=== PATIENT | female | born 1935 | race Caucasian/White ===

== ENCOUNTER 2021-09-02 02:22 | Inpatient (IN) | payer MEDICARE, OTHER ==
[~2021-09-02] VITALS: Ht 160 cm; Wt 86.0 kg
--- NOTE | 2021-09-02 03:06 | NUR ---
PT AWARE OF PLAN OF CARE; STATES NO FURTHER ASSISTANCE AT THIS TIME
[2021-09-02 03:08] LABS: HEMATOCRIT 37.6 % (37.0-47.0); HEMOGLOBIN 12.2 g/dl (12.0-16.0); IMMATURE GRANULOCYTES 1.1 % (0.0-5.0); MEAN CELL VOLUME 92.8 fL CALC (80.0-100.0); MEAN CORPUSCULAR HGB 30.1 pG CALC (26.0-32.0); MEAN CORPUSCULAR HGB CONC 32.4 g/dL CAL (32.0-36.0); NEUT# 3.66 thou/uL (2.00-7.15); RED BLOOD COUNT 4.05 mill/uL (4.20-5.60); RED CELL DISTRI WIDTH 13.7 % (11.5-15.5)
[2021-09-02 03:22] LABS: ALBUMIN 3.9 g/dL (3.2-5.0); ALKALINE PHOSPHATASE 60 u/l (38-126); ANION GAP 15 (6-22 (CALC)); BILIRUBIN, TOTAL 0.7 mg/dL (0.0-1.4); BUN 20 mg/dL (8-23); BUN/CREATININE RATIO 21 (12-20 (CALC)); CARBON DIOXIDE 23 mmol/l (22-30); CHLORIDE 103 mmol/l (95-108); GFR 53 ML/MIN (>=60 (CALC)); GFR FOR AFR.AMER. > 60 ML/MIN (>=60 (CALC)); POTASSIUM 3.5 mmol/l (3.5-5.1); SGOT/AST 43 u/l (9-36); SODIUM 137 mmol/l (137-146); TOTAL PROTEIN 6.9 g/dL (6.3-8.2)
--- NOTE | 2021-09-02 05:58 | NUR ---
PT AWARE OF PLAN OF CARE; STATES NO FURTHER ASSISTANCE AT THIS TIME
--- NOTE | 2021-09-02 07:07 | NUR ---
PT AMBULATED IN ROOM W/O OXYGEN. OXYGEN SAT AT 87% WITH A HR OF 106. NOTIFIED
--- NOTE | 2021-09-02 07:15 | NUR ---
PATIENT PLACED BACK ON OXYGEN, REMAINS 95% SpO2 ON 3L CURRENTLY
--- NOTE | 2021-09-02 08:40 | NUR ---
ATTEMPT TO CALL REPORT
--- NOTE | 2021-09-02 09:18 | NUR ---
REPORT RECIEVED FORM LEONORA GUTIERREZ FROM ER
--- NOTE | 2021-09-02 09:18 | NUR ---
REPORT GIVEN TO JAEL LEA
--- NOTE | 2021-09-02 09:50 | NUR ---
ASSESSMENT ALLOWED AT THIS TIME. LUNG SOUNDS RONCHI IN RUL&ELIZABETH ANTERIOR AND POSTERIOR. DENSE LUNG SOUNDS LLL AND RLL ANTERIOR AND POSTERIOR. HEART SOUNDS REGULAR, TELE MONITOR IN PLACE, CONTINOUS MONITORING BY ED. BOWEL SOUNDS ACTIVE X4. SMALL BRUISE ABOVE THE RIGHT KNEE. PT IS A&O X3. SKIN WDI. PT ON O2 3L VIA NC. STATES NOT O2 DEPENDENT AT HOME. STATES NO OTHER NEEDS AT THIS TIME. CALL LIGHT AND PERSONAL ITEMS WITHIN REACH
[2021-09-02 10:03] VITALS: BP 157/65
[2021-09-02 10:52] VITALS: BP 142/65
[2021-09-02] MEDS ORDERED: CRESTOR5 MG PO (12:07)
[2021-09-02] MEDS ORDERED: TOPROL XL25 M1 PO (12:08)
[2021-09-02] MEDS ORDERED: PEPCID40 MG PO (12:08)
[2021-09-02] MEDS ORDERED: JANUMET1 TAB PO (12:09)
--- NOTE | 2021-09-02 13:18 | NUR ---
PT EATING LUNCH AT THIS TIME. PT HAS VERY PRODUCTIVE COUGH SHOWING SMALL AMOUNTS OF YELLO/DICKENS SPUTUM. O2 REMAINS AT 3L VIA NC SPO2 @96%. ABLE TO TAKE PO MEDS WELL. BED ALARM ACTIVATED. FALL/SAFTEY PRECAUTIONS IN PLACE. IV PATENT. CALL LIGHT AND PERSONAL ITEMS WITHIN REACH
--- NOTE | 2021-09-02 13:21 | NUR ---
PT ARRIVED VIA WC WITH LEONORA GUTIERREZ. PT ON 3L VIA NASAL CANNULA. PT HAS A MOIST PRODUCTIVE COUGH UNABLE TO SEE SPUTUM. ORIENTATED PT TO ROOM. BED ALARM ACTIVATED. FALL/SAFTEY PRECAUTIONS IN PLACE. CALL LIGHT WITHIN REACH
[2021-09-02] MEDS ORDERED: METFORMIN500 M2 PO (13:56)
[2021-09-02] MEDS ORDERED: AVALIDE 300-12.1 TAB PO (14:01)
[2021-09-02 14:56] VITALS: BP 124/60
--- NOTE | 2021-09-02 16:28 | NUR ---
PT SITTING IN BED ON PHONE UPON ENTERING ROOM. STATES NO PAIN AT THIS TIME. COUGH REMAINS PRODUCTIVE WITH YELLOW/DICKENS SPUTUM. IV PATENT. TELE MONITOR IN PLACE. O2 AT 3L VIA NASAL CANNULA. STATES NO OTHER NEEDS AT THIS TIME. FALL/SAFTEY PRECAUTIONS IN PLACE. BED ALARM ACTIVATED. CALL LIGHT WITHIN REACH
--- NOTE | 2021-09-02 19:30 | NUR ---
RECEIVED REPORT FROM LEONORA PERKINS. ASSUMED CARE OF PATIENT.
[2021-09-02 19:35] VITALS: BP 119/64
[2021-09-02 23:56] VITALS: BP 123/66
--- NOTE | 2021-09-03 | NUR ---
PATIENT RESTING IN BED WITH EYES CLOSED, NO S/SX OF DISTRESS OR DISCOMFORT NOTED AT THIS TIME. O2 IN PLACE AT 3L/MIN VIA NC, TELE PLACE AND BEING MONITORED BY ED. CALL LIGHT WITHIN REACH, BED WHEELS LOCKED W/ SIDE RAILS UP X2, WILL CONTINUE TO MONITOR.
[2021-09-03 04:06] VITALS: BP 125/64
--- NOTE | 2021-09-03 04:38 | NUR ---
LAB AT BEDSIDE TO DRAW AM LABS, PATIENT REFUSED TO HAVE IT DONE.
[2021-09-03 05:31] LABS: HEMATOCRIT 36.7 % (37.0-47.0); IMMATURE GRANULOCYTES 0.4 % (0.0-5.0); MEAN CELL VOLUME 92.9 fL CALC (80.0-100.0); MEAN CORPUSCULAR HGB 30.4 pG CALC (26.0-32.0); MEAN CORPUSCULAR HGB CONC 32.7 g/dL CAL (32.0-36.0); NEUT# 8.3 thou/uL (2.00-7.15); RED BLOOD COUNT 3.95 mill/uL (4.20-5.60); RED CELL DISTRI WIDTH 13.8 % (11.5-15.5)
[2021-09-03 05:54] LABS: ALBUMIN 3.3 g/dL (3.2-5.0); ALKALINE PHOSPHATASE 47 u/l (38-126); ANION GAP 12 (6-22 (CALC)); BUN 34 mg/dL (8-23); BUN/CREATININE RATIO 33 (12-20 (CALC)); CARBON DIOXIDE 26 mmol/l (22-30); CHLORIDE 103 mmol/l (95-108); GFR 53 ML/MIN (>=60 (CALC)); GFR FOR AFR.AMER. > 60 ML/MIN (>=60 (CALC)); MAGNESIUM 1.8 mg/dL (1.6-2.3); POTASSIUM 3.8 mmol/l (3.5-5.1); SGOT/AST 35 u/l (9-36); SODIUM 138 mmol/l (137-146)
[2021-09-03 05:55] LABS: BILIRUBIN, TOTAL 0.4 mg/dL (0.0-1.4)
--- NOTE | 2021-09-03 08:00 | NUR ---
SHIFT CHANGE REPORT, PT AWAKE ALERT AND ORIENTED RESTING IN BED, O2 @ 3L VIA ANC IN PLACE, TELE MONITOR IN PLACE, REPORTS SHE IS FEELING BETTER TODAY THAN SHE DID YESTERDAY, IV CATHETER FOUND DISLODGED, CALL KRUSE IN REACH AND BED LOCKED IN LOWEST POSITION.
[2021-09-03 08:48] VITALS: BP 132/57
[2021-09-03 10:15] VITALS: BP 113/59
--- NOTE | 2021-09-03 11:54 | NUR ---
ASSISTED TO BSC, ASSISTED WITH AM CARE BY PUTTIER, BACK IN BED AT THIS TIME.
[2021-09-03 14:52] VITALS: BP 119/66
--- NOTE | 2021-09-03 16:00 | NUR ---
ASSISTED UP TO BSC THEN TO RECLINER, CALL KRUSE PLACED WITHIN REACH, ALL NEEDS ADDRESSED.
[2021-09-03 19:00] VITALS: BP 134/63
--- NOTE | 2021-09-03 22:51 | NUR ---
PHYSICAL ASSESMENT COMPLETE. PT CURRENTLY DENIES PAIN OR DISCOMFORT. SCHEDULED MEDICATIONS AND PRN MEDICATION ADMINISTERED, SEE E-MAR. PT DENIES ANY NEEDS AT THIS TIME. PLAN OF CARE REVIEWED, PT DENIES QUESTIONS, VERBALIZES UNDERSTANDING. ITEMS WITHIN REACH, BED LOCKED IN LOW POSITION W/ BEDRAILS UP X2. CALL KRUSE WITHIN REACH, AGREES TO CALL PRN.
[2021-09-04] VITALS: BP 130/58
--- NOTE | 2021-09-04 00:29 | NUR ---
PT LAYING IN BED WITH EYES CLOSED, APPEARS TO BE SLEEPING, APPEARS COMFORTABLE AND IN NO DISTRESS. RESPIRATIONS REGULAR AND UNLABORED ON 3 LITERS OF O2. ITEMS REMAIN WITHIN REACH, CALL KRUSE REMAINS WITHIN REACH. BED REMAINS LOCKED AND IN LOW POSITION WITH BEDRAILS UP X2. WILL CONTINUE TO MONITOR.
--- NOTE | 2021-09-04 04:10 | NUR ---
PT RESTING IN BED, NO SIGNS OF DISTRESS NOTED, RESP EVEN AND UNLABORED. PT VOICES NO NEEDS OR COMPLAINTS AT THIS TIME. CALL LIGHT IN REACH, CONTINUE TO MONITOR.
[2021-09-04 04:15] VITALS: BP 138/64
[2021-09-04 05:33] LABS: HEMATOCRIT 36.6 % (37.0-47.0); HEMOGLOBIN 11.8 g/dl (12.0-16.0); IMMATURE GRANULOCYTES 0.5 % (0.0-5.0); MEAN CELL VOLUME 92.2 fL CALC (80.0-100.0); MEAN CORPUSCULAR HGB 29.7 pG CALC (26.0-32.0); MEAN CORPUSCULAR HGB CONC 32.2 g/dL CAL (32.0-36.0); NEUT# 7.96 thou/uL (2.00-7.15); RED BLOOD COUNT 3.97 mill/uL (4.20-5.60); RED CELL DISTRI WIDTH 13.7 % (11.5-15.5)
[2021-09-04 06:02] LABS: ALBUMIN 3.2 g/dL (3.2-5.0); ALKALINE PHOSPHATASE 53 u/l (38-126); ANION GAP 13 (6-22 (CALC)); BILIRUBIN, TOTAL 0.4 mg/dL (0.0-1.4); BUN 40 mg/dL (8-23); BUN/CREATININE RATIO 41 (12-20 (CALC)); C-REACTIVE PROTEIN 8.4 mg/dL (0-0.9); CARBON DIOXIDE 24 mmol/l (22-30); CHLORIDE 105 mmol/l (95-108); GFR 53 ML/MIN (>=60 (CALC)); GFR FOR AFR.AMER. > 60 ML/MIN (>=60 (CALC)); POTASSIUM 3.9 mmol/l (3.5-5.1); SGOT/AST 32 u/l (9-36); SODIUM 138 mmol/l (137-146)
[2021-09-04 07:18] VITALS: BP 132/64
--- NOTE | 2021-09-04 07:18 | NUR ---
PATIENT RESTING IN BED AT THIS TIME BOTTLE CAPPING MACHINE OPERATOR DONE AT THIS TIME SEE INTERVENITONS. PATIENT ALERT TO NAME AND WHEREABOUTS AT THIS TIME. PATIENT EXHIBITS TRACE EDEMA IN BILATERAL LOWER LEGS, LUNG LEONARD ARE DIMINISHED AT THIS TIME. SIDERAILS ARE UP CALL LIGHT WIHTIN REACH. TELE MONITOR ON AT THIS TIME BEING MONITORED BY ED. PRODUCTIVE COUGH NOTED WITH THIN WHITE SECREATIONS.
[2021-09-04 10:45] VITALS: BP 139/63; BP 151/67
--- NOTE | 2021-09-04 10:59 | NUR ---
S- pt reported having a bad night. Was up with diarrhea this am. 0- Pt moved supine to sit with bed rail and min assist. Sitting on edge of bed with F+ balance. Transfer to BS chair with SBA. Gait 1x12' and 1 x 20" with CGA assist. Pt steps were small and mild unsteadiness noted. Sitting ex performed x 10- 20 reps for LAQ/hip flexion and ankle DF/PF. Pt reported fatigue after exercises. 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 She was encourage to perform AROM ex and Deep breathing. Pt instructed to have assist with all mobility at this time. HR was 69-72-69, BP 136/62- 146/65-137/63. 02 sats 98% on 3l 02. Time spent with pt 50 min. A- Pt [facility] 14 home with home health. P- will follow.
--- NOTE | 2021-09-04 11:33 | NUR ---
PATIENT SITTING UP IN CHAIR AT THIS TIME. PATIENT DENIES ANY NEEDS CURRENTLY. O2 REMAINS ON AT 3 LITERS AND TELE MONITOR ON AND BEING MONITORED BY ED. WILL CONTINUE TO MONITOR.
--- NOTE | 2021-09-04 11:50 | NUR ---
PATIENT REFUSED TO TAKE PNEUMONIA SHOT STATES SHE ALREADY HAD IT. PATIENT GIVEN FLU SHOT IN LEFT DELTOID 0.7ML HIGH DOSE.
--- NOTE | 2021-09-04 14:07 | NUR ---
PATIENT LAYING IN BED AT THIS TIME ALERT AND ORIENTED WITH BED ALARM AND CAMERA ON . PATIENT ADVISED THAT HER 02 WAS BEING TITRATED TO 2L AT THIS TIME AND EDUCATED ON WHY AND THE PROCESS OF WEANING DOWN PATIENT ALSO ADVISED AT ANY TIME SHE WOULD BECOME SHORT OF BREATH TO CALL OUT FOR NURSE. PATIENT VERBALIZES UNDERSTANDING OF THESE INSTRUCTION.
[2021-09-04 15:00] VITALS: BP 159/67
--- NOTE | 2021-09-04 15:18 | NUR ---
PATIENT ON 2L OF O2 AT THIS TIME. AND SPO2 IS 97%. O2 TURNED DOWN TO 1L WILL CONTINUE TO MONITOR.
--- NOTE | 2021-09-04 15:20 | NUR ---
PATIENT 02 TITATED DOWN TO 1L AT THIS TIME AND SP02 IS CURRENTLY 97% WILL CONTINUE TO MONITOR.
--- NOTE | 2021-09-04 15:35 | NUR ---
PATIENT RESTING IN BED AT THIS TIME DENIES ANY NEEDS AND PAIN TELE MONITOR IN PLACE AND SIDERAILS AND BED ALARM ON AND PATIENT IS ON CAMERA FOR SAFETY. PATIENT 02 IS ON 1L AT THIS TIME AND SPO2 IS 97%. WILL CONTINUE TO MONITOR.
--- NOTE | 2021-09-04 16:53 | NUR ---
PATIENT PULSE OX RECHECKED AT THIS TIME AND PATINET IS AT 92% ON 1L OF O2. INFORMATION REPRORTED TO LUIS VICTOR AT THIS TIME AND PATIENT WILL BE LEFT AT 1L.
[2021-09-04 19:00] VITALS: BP 140/63
--- NOTE | 2021-09-04 22:24 | NUR ---
PT REQUEST AND GIVEN SONATA TO ASSIST WITH SLEEOING.
[2021-09-05] VITALS: BP 150/70
--- NOTE | 2021-09-05 | NUR ---
PT LAYING IN BED WITH EYES CLOSED, APPEARS TO BE SLEEPING, APPEARS COMFORTABLE AND IN NO DISTRESS. RESPIRATIONS REGULAR AND UNLABORED. ITEMS REMAIN WITHIN REACH, CALL KRUSE REMAINS WITHIN REACH. BED REMAINS LOCKED AND IN LOW POSITION WITH BEDRAILS UP X2. WILL CONTINUE TO MONITOR.
[2021-09-05 04:00] VITALS: BP 140/81
[2021-09-05 05:46] LABS: HEMATOCRIT 36.2 % (37.0-47.0); HEMOGLOBIN 11.9 g/dl (12.0-16.0); IMMATURE GRANULOCYTES 2.2 % (0.0-5.0); MEAN CELL VOLUME 92.1 fL CALC (80.0-100.0); MEAN CORPUSCULAR HGB 30.3 pG CALC (26.0-32.0); MEAN CORPUSCULAR HGB CONC 32.9 g/dL CAL (32.0-36.0); NEUT# 6.81 thou/uL (2.00-7.15); RED BLOOD COUNT 3.93 mill/uL (4.20-5.60); RED CELL DISTRI WIDTH 13.7 % (11.5-15.5)
[2021-09-05 06:09] LABS: ALBUMIN 3.2 g/dL (3.2-5.0); ALKALINE PHOSPHATASE 61 u/l (38-126); ANION GAP 12 (6-22 (CALC)); BILIRUBIN, TOTAL 0.4 mg/dL (0.0-1.4); BUN 37 mg/dL (8-23); BUN/CREATININE RATIO 36 (12-20 (CALC)); CARBON DIOXIDE 25 mmol/l (22-30); CHLORIDE 105 mmol/l (95-108); GFR 53 ML/MIN (>=60 (CALC)); GFR FOR AFR.AMER. > 60 ML/MIN (>=60 (CALC)); MAGNESIUM 1.9 mg/dL (1.6-2.3); POTASSIUM 4.2 mmol/l (3.5-5.1); SGOT/AST 31 u/l (9-36); SODIUM 137 mmol/l (137-146); TOTAL PROTEIN 5.8 g/dL (6.3-8.2)
[2021-09-05 07:20] VITALS: BP 138/80
--- NOTE | 2021-09-05 07:20 | NUR ---
PATIENT RESTING IN BED AT THIS TIME. PATIENT DENIES ANY NEEDS AND OR PAIN PROPAGATOR DONE SEE INTERVENTIONS. LUNG LEONARD ARE DIMINISHED THROUGHOUT ALL LUNG LEONARD. SIDERAILS ARE UP X 2 CALL LIGHT WITHIN REACH SPO2 IS 98% ON 1 LITER OF OXYGEN. TELE MONITOR ON AND BEING MONITORED BY ED.
[2021-09-05 11:15] VITALS: BP 131/61
--- NOTE | 2021-09-05 11:57 | NUR ---
S- pt reported being tried. 0- Pt OOB in chair, she reported doing some exercises on her own and did ALDs in BR. Pt ambulated in room 2x45' with CGA and [address] LE exercises reviewed in sitting. Standing balance with CGA performed. Pt had tendency to do light touch on furnture while walking and mild decreased balance noted. 02sats 97-98%, BP 145/66, 153/65, 131/61, HR in 60's. Time spent with pt 40 min A- [facility] 15 home with home health P- will follow
--- NOTE | 2021-09-05 11:58 | NUR ---
PATIENT SITTING UP AT BEDSIDE. PATIENT DENIES ANY PAIN OR NEEDS CALL LIGHT WITHIN REACH. 02 ON AT 1 LITER AND SPO2 IS 97% AT THIS TIME. WILL CONTINUE TO MONITOR. TELE MONITOR IN PLACE AT THIS TIME.
--- NOTE | 2021-09-05 15:30 | NUR ---
PATIENT SITTING AT BEDSIDE AT THIS TIME. PATIENT DENEIES ANY PAIN AT THIS TIME. PATIENT SIDERAILS ARE UP X 2 CAN CALL LIGHT IS WITHIN REACH PATIENT O2 ON AT 1 LITER. TELE MONITOR ON AND BEING MONITORED BY ED AT THIS TIME. PATIENT DEINES ANY SHORTNESS OF BREATH.
[2021-09-05 15:51] VITALS: BP 140/86
[2021-09-05 19:00] VITALS: BP 163/72
[2021-09-06] VITALS: BP 168/75
[2021-09-06 04:00] VITALS: BP 157/72
[2021-09-06 06:29] LABS: HEMATOCRIT 34.3 % (37.0-47.0); HEMOGLOBIN 11.4 g/dl (12.0-16.0); MEAN CELL VOLUME 89.8 fL CALC (80.0-100.0); MEAN CORPUSCULAR HGB 29.8 pG CALC (26.0-32.0); MEAN CORPUSCULAR HGB CONC 33.2 g/dL CAL (32.0-36.0); NEUT# 4.57 thou/uL (2.00-7.15); RED BLOOD COUNT 3.82 mill/uL (4.20-5.60); RED CELL DISTRI WIDTH 13.5 % (11.5-15.5)
[2021-09-06 06:43] LABS: IMMATURE GRANULOCYTES 7.4 % (0.0-5.0)
--- NOTE | 2021-09-06 07:00 | NUR ---
SHIFT CHANGE REPORT, PT AWAKE, ALERT AND ORIENTED AMBULATING IN ROOM, O2 @ 1L IN PLACE VIA NC, TELE MONITOR IN PLACE, STATED SHE HAD A ROUGH NIGHT AND DID NOT REST WELL DUE TO EXCESIVE COUGHING AND INTERRUPTIONS, DENIES PAIN, CALL KRUSE IN REACH AND BED LOCKED IN LOWEST POSITION.
[2021-09-06 07:09] LABS: ALKALINE PHOSPHATASE 57 u/l (38-126); ANION GAP 10 (6-22 (CALC)); BILIRUBIN, TOTAL 0.4 mg/dL (0.0-1.4); BUN 31 mg/dL (8-23); BUN/CREATININE RATIO 31 (12-20 (CALC)); C-REACTIVE PROTEIN 3.4 mg/dL (0-0.9); CARBON DIOXIDE 26 mmol/l (22-30); CHLORIDE 106 mmol/l (95-108); GFR 53 ML/MIN (>=60 (CALC)); GFR FOR AFR.AMER. > 60 ML/MIN (>=60 (CALC)); POTASSIUM 4.2 mmol/l (3.5-5.1); SGOT/AST 30 u/l (9-36); SODIUM 139 mmol/l (137-146); TOTAL PROTEIN 5.5 g/dL (6.3-8.2)
[2021-09-06 08:20] VITALS: BP 179/75
[2021-09-06 10:45] VITALS: BP 138/62
--- NOTE | 2021-09-06 11:50 | NUR ---
S- Pt reported not doing well today, had a restless night. 0- Pt resting in chair, was cooperative with gait. Pt moved sit to and from standing indep. Gait without AD device with supervision only, no LOB noted. Pt ambulated 2 x 45' in room. Pt not up to exercise at this time. BP 138/62 HR 66-69 02sats on 1L after 1st walk 97%, after 2nd walk with no 02 (per nursing) 95%. Pt left in chair with call portillo and tray in reach. Time spent with pt 30 min. 0- [facility] 15 home with Home health. P- will follow.
--- NOTE | 2021-09-06 12:00 | NUR ---
SITTING UP IN RECLINER HAVING MEAL, NO NEW COMPLAIN, 6 MIN WALK TEST COMPLETED WITH FAVORABLE RESULTSOF MAINTAINING O2 SATS 94% AND ABOVE, ALL NEEDS ADDRESSED.
[2021-09-06 15:00] VITALS: BP 123/54
--- NOTE | 2021-09-06 16:00 | NUR ---
RESTING IN BED, IV SITE LEAKING, ISSUE ADDRESSED, WILL CONTINUE TO MONITOR.
[2021-09-06 19:00] VITALS: BP 155/76
[2021-09-07] VITALS: BP 164/77
[2021-09-07 04:00] VITALS: BP 162/78
[2021-09-07 06:30] LABS: HEMATOCRIT 34.8 % (37.0-47.0); HEMOGLOBIN 11.6 g/dl (12.0-16.0); MEAN CELL VOLUME 91.8 fL CALC (80.0-100.0); MEAN CORPUSCULAR HGB 30.6 pG CALC (26.0-32.0); MEAN CORPUSCULAR HGB CONC 33.3 g/dL CAL (32.0-36.0); NEUT# 4.85 thou/uL (2.00-7.15); RED BLOOD COUNT 3.79 mill/uL (4.20-5.60); RED CELL DISTRI WIDTH 13.5 % (11.5-15.5)
[2021-09-07 06:35] LABS: IMMATURE GRANULOCYTES 10.9 % (0.0-5.0)
[2021-09-07 06:47] LABS: ALKALINE PHOSPHATASE 58 u/l (38-126); ANION GAP 11 (6-22 (CALC)); BILIRUBIN, TOTAL 0.4 mg/dL (0.0-1.4); BUN 27 mg/dL (8-23); BUN/CREATININE RATIO 27 (12-20 (CALC)); CARBON DIOXIDE 24 mmol/l (22-30); CHLORIDE 106 mmol/l (95-108); GFR 53 ML/MIN (>=60 (CALC)); GFR FOR AFR.AMER. > 60 ML/MIN (>=60 (CALC)); POTASSIUM 4.1 mmol/l (3.5-5.1); SGOT/AST 29 u/l (9-36); SODIUM 137 mmol/l (137-146); TOTAL PROTEIN 5.5 g/dL (6.3-8.2)
[2021-09-07 07:00] VITALS: BP 150/67
--- NOTE | 2021-09-07 07:45 | NUR ---
AM ASSESSMENT COMPLETED WITH Michelle REVELES RN. WILL CONTINUE TO MONITOR.
[2021-09-07 11:01] VITALS: BP 150/67
[2021-09-07 11:09] VITALS: BP 141/65
--- NOTE | 2021-09-07 11:14 | NUR ---
Attempted treatment this am, she reported being tried and was gooing home today. Treatment held, pt instructed in importance of keeping mobile.
[2021-09-07] MEDS ORDERED: DEXAMETHASON6 MG PO (12:57)
[2021-09-07] MEDS ORDERED: ZOFRAN4 MG/TAB PO (12:57)
[2021-09-07] MEDS ORDERED: ZITHROMAX250 MG PO (12:58)
[2021-09-07] MEDS ORDERED: ASPIRIN REGULA325 M1 PO (12:58)
[2021-09-07] MEDS ORDERED: VENTOLIN HFA108 MCG IN (13:16)
--- NOTE | 2021-09-07 14:02 | NUR ---
Discharge instructions given. Patient verbalizes understanding of same. Discharged in stable condition via Wheelchair to Home with staff. All belongings sent with pt.
== END 2021-09-07 14:04 | disposition home health service (06) | DRG 177 ==
LOC: ED 02:22 → ED-I 07:00 → ED 07:22 → MS2 07:23
PROVIDERS: Emergency Medicine; Nurse Practitioner; Nurse Practitioner Family; ADMIT Hospitalist; ATTEND Internal Medicine
PROC: XW033E5 Introduction of Remdesivir Anti-infective into Peripheral Vein, Percutaneous Approach, New Technology Group 5 (ICD-10-PCS; principal; 2021-09-03)
PROC: 3E02340 Introduction of Influenza Vaccine into Muscle, Percutaneous Approach (ICD-10-PCS; 2021-09-04)
DX: U07.1 COVID-19 (principal); J12.82 Pneumonia due to coronavirus disease 2019; R09.02 Hypoxemia; I11.0 Hypertensive heart disease with heart failure; I50.9 Heart failure, unspecified; E11.9 Type 2 diabetes mellitus without complications; Z23 Encounter for immunization; Z79.84 Long term (current) use of oral hypoglycemic drugs
CPT/HCPCS: G0378; J1650; Q9967

== ENCOUNTER 2021-09-15 12:13 | Observation (INO) | payer MEDICARE, OTHER ==
[~2021-09-15] VITALS: Ht 160 cm; Wt 81.0 kg
[~2021-09-15 12:13] MED LIST: ASPIRIN REGULA325 M1 PO; AVALIDE 300-12.1 TAB PO; CRESTOR5 MG PO; DEXAMETHASON6 MG PO; JANUMET1 TAB PO; METFORMIN500 M2 PO; PEPCID40 MG PO; TOPROL XL25 M1 PO; VENTOLIN HFA108 MCG IN; ZITHROMAX250 MG PO; ZOFRAN4 MG/TAB PO
--- NOTE | 2021-09-15 12:30 | NUR ---
TO ROOM VIA WHEELCHAIR, ACCOMPANIED BY FAMILY MEMBER.
[2021-09-15 14:08] LABS: HEMATOCRIT 40.7 % (37.0-47.0); HEMOGLOBIN 13.1 g/dl (12.0-16.0); IMMATURE GRANULOCYTES 2.1 % (0.0-5.0); MEAN CELL VOLUME 93.8 fL CALC (80.0-100.0); MEAN CORPUSCULAR HGB 30.2 pG CALC (26.0-32.0); MEAN CORPUSCULAR HGB CONC 32.2 g/dL CAL (32.0-36.0); NEUT# 10.68 thou/uL (2.00-7.15); RED BLOOD COUNT 4.34 mill/uL (4.20-5.60); RED CELL DISTRI WIDTH 14.2 % (11.5-15.5)
[2021-09-15 14:18] LABS: ALBUMIN 3.5 g/dL (3.2-5.0); ALKALINE PHOSPHATASE 80 u/l (38-126); AMYLASE 148 u/l (30-110); ANION GAP 13 (6-22 (CALC)); BUN 27 mg/dL (8-23); BUN/CREATININE RATIO 25 (12-20 (CALC)); CARBON DIOXIDE 26 mmol/l (22-30); CHLORIDE 98 mmol/l (95-108); CREATININE 1.1 mg/dL (0.5-1.0); GFR 47 ML/MIN (>=60 (CALC)); GFR FOR AFR.AMER. 57 ML/MIN (>=60 (CALC)); LIPASE 312 u/l (23-300); POTASSIUM 4.1 mmol/l (3.5-5.1); SGOT/AST 29 u/l (9-36); SODIUM 133 mmol/l (137-146); TOTAL PROTEIN 6.1 g/dL (6.3-8.2)
[2021-09-15 14:25] LABS: BILIRUBIN, TOTAL 1.1 mg/dL (0.0-1.4); MAGNESIUM 1.4 mg/dL (1.6-2.3)
[2021-09-15 14:34] LABS: ACT PARTIAL THROMBO TIME 21.9 SECONDS (20.0-32.5); INTERNATIONAL NORMALIZED RATIO 1.1 RATIO (0.7-1.3); PROTHROMBIN TIME 11.2 SECONDS (9.0-12.5)
--- NOTE | 2021-09-15 14:55 | NUR ---
MAGNESIUM 2GRAM IV INITIATED TO #20 RAC, SITE APPEARS HEALTHY, NO REDNESS OR EDEMA NOTED.
[2021-09-15 15:28] LABS: URINE BILIRUBIN - DIPSTICK NEGATIVE (NEGATIVE); URINE BLOOD DIPSTICK NEGATIVE (NEGATIVE); URINE COLOR YELLOW; URINE GLUCOSE - DIPSTICK >=1000 mg/dL (NEGATIVE); URINE KETONE NEGATIVE (NEGATIVE); URINE LEUK ESTERASE NEGATIVE (NEGATIVE); URINE PROTEIN - DIPSTICK NEGATIVE (NEG-TRACE); URINE SPECIFIC GRAVITY 1.015; URINE UROBILINOGEN - DIPSTICK 0.2 E.U./dL (0.2)
[2021-09-15 15:29] LABS: URINE NITRITE - DIPSTICK NEGATIVE (Negative)
--- NOTE | 2021-09-15 17:00 | NUR ---
ACCUCHECK 135
--- NOTE | 2021-09-15 18:25 | NUR ---
MEDICATED WITH KLONOPIN 0.5MG PO FOR C/O ANXIETY
--- NOTE | 2021-09-15 18:55 | NUR ---
REPORT GIVEN TO HAMLET LEA.
--- NOTE | 2021-09-15 19:55 | NUR ---
W/P/D SKIN AWAKENED FROM SLEEP ALERT AND ORIENTED X3.SPEECH IS CLEAR SR NO ST T CHANGES NO ECTOPTY.
--- NOTE | 2021-09-15 20:00 | NUR ---
PHONE REPORT TO MS NURSE
--- NOTE | 2021-09-15 20:05 | NUR ---
PT TRANSPORTED TO [facility] 262 VIA STRETCHER TELE IN STABLE CONDITION.NO N/V/OR D THIS ER STAY
[2021-09-15 20:18] VITALS: BP 120/56
--- NOTE | 2021-09-15 20:18 | NUR ---
PT ARRIVED TO [facility] VIA STRETCHER ACCOMPANIED BY ER NURSE, ORIENTED TO ROOM AND CALL LIGHT, CALL LIGHT IN REACH,CONTINUE TO MONITOR.
--- NOTE | 2021-09-15 21:00 | NUR ---
PT RESTING IN BED, NO SIGNS OF DISTRESS NOTED, RESP EVEN AND UNLABORED. PT ALERT AND ORIENTED X3, BUT FORGETFUL. DISCUSSED POC, PT AGREES. ASKING "WHAT DO I NEED TO DO?" ENCOURAGED DEEP BREATHING EXERCISES, AND PRONING WHEN SHE CAN. DURING ADMISSION PROCESS PT KEEP ASKING ABOUT THE AIR SCRUBBER, DUE TO PT'S FORGETFULNESS BED ALARM PLACED. INITAITED IV FLUIDS, AND DISCUSSED LOVENOX. TEDS APPLIED. ADMISSION ASSESSMENT COMPLETED, CALL LIGHT IN REACH,CONTINUE TO MONITOR.
--- NOTE | 2021-09-15 22:00 | NUR ---
PT ASSISTED TO BSC, NO SIGNS OF DISTRESS NOTED, RESP EVEN AND UNLABORED. CALL LIGHT IN REACH,CONTINUE TO MONITOR.
[2021-09-16] VITALS: BP 122/59
--- NOTE | 2021-09-16 | NUR ---
VITALS OBTAINED, PT VOICES NO NEEDS OR COMPLAINTS AT THIS TIME, CALL LIGHT IN REACH,CONTINUE TO MONITOR, BED ALARM FOR SAFETY.
[2021-09-16 03:59] VITALS: BP 122/73
--- NOTE | 2021-09-16 04:00 | NUR ---
PT RESTING IN BED, NO SIGNS OF DISTRESS NOTED, RESP EVEN AND UNLABORED. PT VOICES NO NEEDS OR COMPLAINTS AT THIS TIME, CALL LIGHT IN REACH,CONTINUE TO MONITOR.
[2021-09-16 06:07] LABS: HEMOGLOBIN 11.7 g/dl (12.0-16.0); MEAN CELL VOLUME 94.2 fL CALC (80.0-100.0); MEAN CORPUSCULAR HGB 30.6 pG CALC (26.0-32.0); MEAN CORPUSCULAR HGB CONC 32.5 g/dL CAL (32.0-36.0); RED BLOOD COUNT 3.82 mill/uL (4.20-5.60); RED CELL DISTRI WIDTH 14.3 % (11.5-15.5)
[2021-09-16 06:25] LABS: ANION GAP 10 (6-22 (CALC)); BUN 16 mg/dL (8-23); BUN/CREATININE RATIO 18 (12-20 (CALC)); CARBON DIOXIDE 25 mmol/l (22-30); CHLORIDE 105 mmol/l (95-108); CREATININE 0.9 mg/dL (0.5-1.0); GFR 60 ML/MIN (>=60 (CALC)); GFR FOR AFR.AMER. > 60 ML/MIN (>=60 (CALC)); SODIUM 136 mmol/l (137-146)
[2021-09-16 06:33] LABS: MAGNESIUM 1.7 mg/dL (1.6-2.3)
--- NOTE | 2021-09-16 08:00 | NUR ---
ASSESSMENT AND VITALS ALLOWED AT THIS TIME. LUNG SOUNDS ARE CLEAR RUL AND ELIZABETH ANTERIOR. DIMINISHED RUL&ELIZABETH POSTERIOR. LLL AND RLLL DIMINISHED ANTERIOR AND POSTERIOR. HEART IS REGULAR. BOWEL SOUNDS ACTTIVE X4. TELE MONITOR IN PLACE. CONTINOUS MONITORING BY ED. IV 20 LAC, FLUSHED NO RESISTANCE. RADIAL AND PEDAL PULSE STRONG. STATES NO PAIN AT THIS TIME. NS INFUSING PER EMAR ORDER. CALL LIGHT WITHIN REACH. FALL/SAFTEY PRECAUTIONS IN PLACE.
--- NOTE | 2021-09-16 09:00 | NUR ---
SCANNED MED METROPOLOL TWICE ON ACCIDENT. DISCARDED IN SHARPS WITH MONA LEA WITNESS. ONLY GIVEN 0.5 TAB, 25MG OF THE METOPROLOL.
[2021-09-16 12:09] VITALS: BP 116/58
--- NOTE | 2021-09-16 13:03 | NUR ---
PT WATCHING TV AT THIS TIME. STATES NO PAIN. IV PATENT INFUSING NS PER EMAR. FALL/SAFTEY PRECAUTIONS IN PLACE. TELE MONITOR IN PLACE. STATES NO OTHER NEEDS AT THIS TIME. CALL LIGHT IS WITHIN REACH
[2021-09-16 17:30] VITALS: BP 140/65
--- NOTE | 2021-09-16 18:00 | NUR ---
WAS ABLE TO CONVINCE PT TO GET OUT OF BED AND SIT IN CHAIR FOR DINNER. PT AGREED. SHOWED PT HOW TO USE PHONE WAS ABLE TO TALK TO FAMILY. STATES NO PAIN AT THIS TIME. CALL LIGHT IS WITHIN REACH. TELE MONITOR IN PLACE. IV PATENT INFUSING NS PER EMAR.
[2021-09-16 19:03] VITALS: BP 165/71
--- NOTE | 2021-09-16 19:50 | NUR ---
PT RESTING IN BED WATCHING TV, NO SIGNS OF DISTRESS NOTED, RESP EVEN AND UNLABORED. PT ALERT AND ORIENTED X4, DISCUSSED POC, PT STATES SHE "FEELS BETTER THAN YESTERDAY" DISCUSSED POC, SKIN INTACT. TEDS IN PLACE, ASSESSMENT REVIEW COMPLETED, CALL LIGHT IN REACH, CONTINUE TO MONITOR.
--- NOTE | 2021-09-16 21:00 | NUR ---
PT MEDICATED PER MAR, NO SIGNS OF DISTRESS NOTED, RESP EVEN AND UNLABORED. CALL LIGHT IN REACH,CONTINUE TO MONITOR.
--- NOTE | 2021-09-17 | NUR ---
VITALS OBTAINED, PT VOICES NO NEEDS OR COMPLAINTS AT THIS TIME, CALL LIGHT IN REACH,CONTINUE TO MONITOR.
[2021-09-17 00:36] VITALS: BP 122/60
--- NOTE | 2021-09-17 00:51 | NUR ---
PATIENT CALLED ASKING TO SEE THE NURSE-RESPONDED TO ROOM AND PATIENT STATES THAT HE FEELS LIKE HE IS SPINNING, FEELING DIZZY. VS TAKEN-BP 110/66, HR-69 AND O2 SAT IS 88% ON ROOM AIR. O2 VIA NASAL CANNULA APPLIED AT 2LPM AND O2 SAT INCREASED TO 94%. PATIENT NOW WITH PRODUCTIVE COUGH-WHITE SECRETIONS. SAFETY PRECAUTIONS REINFORCED. CALL LIGHT IN REACH. WILL CONT TO MONITOR.
--- NOTE | 2021-09-17 04:00 | NUR ---
PT RESTING IN BED, NO SIGNS OF DISTRESS NOTED, RESP EVEN AND UNLABORED, VOICES NO NEEDS OR COMPLAINTS AT THIS TIME, CALL LIGHT IN REACH,CONTINUE TO MONITOR.
[2021-09-17 04:10] VITALS: BP 170/70
[2021-09-17 05:30] LABS: HEMATOCRIT 33.9 % (37.0-47.0); MEAN CELL VOLUME 93.9 fL CALC (80.0-100.0); MEAN CORPUSCULAR HGB 30.5 pG CALC (26.0-32.0); MEAN CORPUSCULAR HGB CONC 32.4 g/dL CAL (32.0-36.0); RED BLOOD COUNT 3.61 mill/uL (4.20-5.60); RED CELL DISTRI WIDTH 13.9 % (11.5-15.5)
[2021-09-17 05:44] LABS: ALKALINE PHOSPHATASE 59 u/l (38-126); ANION GAP 9 (6-22 (CALC)); BILIRUBIN, TOTAL 1.1 mg/dL (0.0-1.4); BUN 14 mg/dL (8-23); BUN/CREATININE RATIO 16 (12-20 (CALC)); CARBON DIOXIDE 23 mmol/l (22-30); CHLORIDE 107 mmol/l (95-108); CREATININE 0.8 mg/dL (0.5-1.0); GFR > 60 ML/MIN (>=60 (CALC)); GFR FOR AFR.AMER. > 60 ML/MIN (>=60 (CALC)); POTASSIUM 3.8 mmol/l (3.5-5.1); SGOT/AST 28 u/l (9-36); SODIUM 136 mmol/l (137-146); TOTAL PROTEIN 5.3 g/dL (6.3-8.2)
[2021-09-17 05:49] LABS: ALBUMIN 2.7 g/dL (3.2-5.0)
[2021-09-17 06:35] VITALS: BP 158/72
--- NOTE | 2021-09-17 08:00 | NUR ---
PT AWAKE AND SITTING IN CHAIR UPON ENTERING ROOM PT A&O X3 BUT IS FORGETFUL THIS MORNING. KEPT ASKING ME ABOUT HER METOPROLOL MEDICATION AFTER I TOLD HER SEVERAL TIMES WHEN SHE GETS IT AND DOSE. STATES NO PAIN AT THIS TIME. ONLY CONSTIPATION. MD AWARE. IV:20 RAC, FLUSHED WITH NO RESISTANCE. INFUSING NS PER EMAR. GLUCOSE CHECK: 112, NO COVERAGE NEEDED PER SLIDNG SCALE. ASSESSMENT AND VITALS ALLOWED AT THIS TIME. LUNG SOUNDS ARE CLEAR RUL&ELIZABETH ANTERIOR. RUL,RLL,ELIZABETH,LLL DIMINISHED ANTERIOR AND POSTERIOR.HEART SOUNDS ARE REGULAR. TELE MONITOR IN PLACE, CONTINOUS MONITORING BY ED. BOWEL SOUNDS ACTIVE X4. STATES WANTING MED FOR CONSTIPATION.FALL/SAFTEY PRECAUTION IN PLACE. CALL LIGHT IS WITHIN REACH.
--- NOTE | 2021-09-17 09:44 | NUR ---
PATIENT IN PAIN. TYNENOL GIVEN. NOTIFIED MD ABOUT PT PAIN. ASSESSMENT AND VITALS ALLOWED AT THIS TIME. PT ABLE TO SWALLOW MEDICATIONS WELL. LUNG SOUNDS ARE CLEAR UPPER/LOWER LOBES ANTERIOR AND POSTERIOR. HEART SOUNDS ARE REGULAR. TELE MONITOR IN PLACE, CONTINOUS MONITORING BY ED. BOWEL SOUNDS ARE ACTIVE X4. ABD HAS MIDLINE INCISON CDI. PT VOIDED LIGHT PINK/BLOODY URINE MD AND MILLER SUPERVISOR ALSO NOTIFIED. IV IS ON RAC 20G NO RESISTANCE AND ABLE TO GET BLOOD RETURN. ALSO INFUSING NS PER EMAR. RADIAL AND PEDAL PULSE STRONG EQUALLY BILATERALLY. FALL/SAFETY PRECAUTIONS IN PLACE. STATES NO OTHER NEEDS AT THIS TIME. CALL LIGHT IS WITHIN REACH.
[2021-09-17 11:10] VITALS: BP 135/60
--- NOTE | 2021-09-17 13:28 | NUR ---
WITH LEONORA CRUZ AND PT TRYING TO ESTABLISH IV. PREVIOUS IV WAS DISLODGED ON ACCIDENT BY PT. IV RAC 20G CATHETER INTACT.
--- NOTE | 2021-09-17 13:48 | NUR ---
RN TELEPHONE ENGINEER AL BORREGO[TING TO ESTABLISH IV AT THIS TIME.
[2021-09-17 15:03] VITALS: BP 145/72
[2021-09-17 20:01] VITALS: BP 132/60
--- NOTE | 2021-09-17 20:11 | NUR ---
Pt medicated as orders provide and assessment completed. Assisted pt to the bsc. Call light placed w/in reach and pt instructed to call when she was finished, she wanted to sit for awhile. Upon re-entering the room, pt had self transferred to the bed. I reminded her to call for assistance ambulating. Verbalized understanding. Lights turned down per preference and call light left at side.
[2021-09-18 00:31] VITALS: BP 125/60
--- NOTE | 2021-09-18 01:06 | NUR ---
PT CALLED ASKING FOR NAUSEA MEDICATION/PROVIDED ZOFRAN AT THIS TIME FOR THE NAUSEA, EMESIS BAG PROVIDED AND COOL CLOTH TO HEAD. PT DENIED ANY OTHER ASSISTANCE AT THIS TIME. SHE ASKED IF I WOULD CHECK HER AGAIN IN 15 MINUTES, AGREED.
--- NOTE | 2021-09-18 01:25 | NUR ---
PT APPEARS TO BE RESTING, EYES ARE CLOSED, RESP EVEN AND NON-LABORED, NO S/O DISTRESS NOTED AT THIS TIME. CALL LIGHT AT SIDE.
--- NOTE | 2021-09-18 03:08 | NUR ---
PT APPEARS TO BE SLEEPING AT THIS TIME. EYES ARE CLOSED, RESP EVEN AND NON-LABORED.
--- NOTE | 2021-09-18 04:43 | NUR ---
PT CALLED ASKING FOR BREAKFAST, I ADVISED THAT BREAKFAST ISN'T SERVED UNTIL 0730, BUT OFFERED A GRAIN BAR AND MILK OR JUICE, DENIED STATING SHE WILL WAIT UNTIL BREAKFAST. LAB IN TO SEE PT.
--- NOTE | 2021-09-18 05:00 | NUR ---
TELEMETRY REPLACED, PT HAD PULLED IT OFF AND THROWN IT ON THE FLOOR/SHE DENIED. SHE ASKED FOR BELKIS, I REVIEWED SCHEDULE OF MEDICATION WITH HER.
[2021-09-18 05:11] VITALS: BP 124/61
[2021-09-18 05:41] LABS: HEMATOCRIT 33.2 % (37.0-47.0); HEMOGLOBIN 10.8 g/dl (12.0-16.0); MEAN CELL VOLUME 94.6 fL CALC (80.0-100.0); MEAN CORPUSCULAR HGB 30.8 pG CALC (26.0-32.0); MEAN CORPUSCULAR HGB CONC 32.5 g/dL CAL (32.0-36.0); RED BLOOD COUNT 3.51 mill/uL (4.20-5.60); RED CELL DISTRI WIDTH 13.9 % (11.5-15.5)
[2021-09-18 05:47] LABS: ANION GAP 9 (6-22 (CALC)); BUN 11 mg/dL (8-23); BUN/CREATININE RATIO 13 (12-20 (CALC)); CARBON DIOXIDE 24 mmol/l (22-30); CHLORIDE 108 mmol/l (95-108); CREATININE 0.9 mg/dL (0.5-1.0); GFR 60 ML/MIN (>=60 (CALC)); GFR FOR AFR.AMER. > 60 ML/MIN (>=60 (CALC)); MAGNESIUM 1.5 mg/dL (1.6-2.3); POTASSIUM 3.7 mmol/l (3.5-5.1); SODIUM 137 mmol/l (137-146)
[2021-09-18 07:55] VITALS: BP 148/69
[2021-09-18 10:30] VITALS: BP 147/65
--- NOTE | 2021-09-18 10:51 | NUR ---
PT IS ALERT AND ORIENTED X 3. LUNGS CLEAR, RA. PT IS AMBULATORY IN ROOM. MIRALAX PROVIDED.
--- NOTE | 2021-09-18 11:51 | NUR ---
S- pt stated she was doing better, wants to go home. 0- Pt resting in bed, she was able to roll side to side and sit over edge of bed with supervision only. Gait in room 2 x 40' with assist of lines and supervision, step were small but no LOB noted. She ambulated to BR to urinate and was able to stand from toilet indep without use of rail. She reports her and son will be home with her initially. 02 sats in mid 90's. Pt encouraged to do AROM ex to LEs which she reported doing at home. A- Pt mobility improved from evaluation. [facility] 13 home with home health. P- will follow.
--- NOTE | 2021-09-18 13:44 | NUR ---
PT HAS BEEN DISCHARGED TO HOME. PT VERBALIZED UNDERSTANDING OF DC INSTRUCTIONS AND WAS TAKEN TO LOBBY WHERE HER RIDE WAS TO PICK HER UP. PT LEAVES [facility] IN STABLE CONDITION.
== END 2021-09-18 13:23 | disposition home health service (06) ==
LOC: ED 12:13 → ED-I 14:12 → ED 17:48 → MS2 17:49
PROVIDERS: Nurse Practitioner Family; ADMIT Hospitalist; ATTEND Hospitalist
DX: U07.1 COVID-19 (principal); E86.0 Dehydration; E83.42 Hypomagnesemia; E87.2 Acidosis; E87.1 Hypo-osmolality and hyponatremia; K59.00 Constipation, unspecified; I11.0 Hypertensive heart disease with heart failure; I50.9 Heart failure, unspecified; E11.9 Type 2 diabetes mellitus without complications; T38.0X6A Underdosing of glucocorticoids and synthetic analogues, initial encounter; Z91.128 Patient's intentional underdosing of medication regimen for other reason
CPT/HCPCS: J1650; J3475; Q9967

== ENCOUNTER 2021-09-27 14:29 | Observation (INO) | payer MEDICARE, OTHER ==
[~2021-09-27] VITALS: Ht 160 cm; Wt 85.0 kg
[~2021-09-27 14:29] MED LIST changes: +METOPROL TAR25 M1 PO; -TOPROL XL25 M1 PO
[2021-09-27 14:55] LABS: HEMOGLOBIN 12.4 g/dl (12.0-16.0); IMMATURE GRANULOCYTES 3.7 % (0.0-5.0); MEAN CELL VOLUME 95.6 fL CALC (80.0-100.0); MEAN CORPUSCULAR HGB 30.4 pG CALC (26.0-32.0); MEAN CORPUSCULAR HGB CONC 31.8 g/dL CAL (32.0-36.0); NEUT# 3.88 thou/uL (2.00-7.15); RED BLOOD COUNT 4.08 mill/uL (4.20-5.60); RED CELL DISTRI WIDTH 13.7 % (11.5-15.5)
[2021-09-27 15:19] LABS: ALKALINE PHOSPHATASE 84 u/l (38-126); BILIRUBIN, TOTAL 0.8 mg/dL (0.0-1.4); BUN 19 mg/dL (8-23); BUN/CREATININE RATIO 11 (12-20 (CALC)); CARBON DIOXIDE 23 mmol/l (22-30); CHLORIDE 103 mmol/l (95-108); CREATININE 1.7 mg/dL (0.5-1.0); GFR 29 ML/MIN (>=60 (CALC)); GFR FOR AFR.AMER. 35 ML/MIN (>=60 (CALC)); SODIUM 139 mmol/l (137-146)
[2021-09-27 15:21] LABS: ALBUMIN 4.2 g/dL (3.2-5.0); ANION GAP 18 (6-22 (CALC)); POTASSIUM 4.5 mmol/l (3.5-5.1); SGOT/AST 51 u/l (9-36)
[2021-09-27 17:38] LABS: URINE BILIRUBIN - DIPSTICK NEGATIVE (NEGATIVE); URINE BLOOD DIPSTICK TRACE-LYSED (NEGATIVE); URINE COLOR YELLOW; URINE GLUCOSE - DIPSTICK NEGATIVE (NEGATIVE); URINE KETONE NEGATIVE (NEGATIVE); URINE LEUK ESTERASE NEGATIVE (NEGATIVE); URINE PH 5.5 (4.5-8.0); URINE PROTEIN - DIPSTICK NEGATIVE (NEG-TRACE); URINE UROBILINOGEN - DIPSTICK 0.2 E.U./dL (0.2)
[2021-09-27 18:01] LABS: URINE NITRITE - DIPSTICK NEGATIVE (Negative)
[2021-09-28] VITALS: BP 111/59
[2021-09-28 04:00] VITALS: BP 108/54
[2021-09-28 06:40] LABS: HEMATOCRIT 34.2 % (37.0-47.0); HEMOGLOBIN 10.9 g/dl (12.0-16.0); MEAN CELL VOLUME 96.1 fL CALC (80.0-100.0); MEAN CORPUSCULAR HGB 30.6 pG CALC (26.0-32.0); MEAN CORPUSCULAR HGB CONC 31.9 g/dL CAL (32.0-36.0); RED BLOOD COUNT 3.56 mill/uL (4.20-5.60)
[2021-09-28 06:44] LABS: CREATININE 1.1 mg/dL (0.5-1.0); MAGNESIUM 1.5 mg/dL (1.6-2.3); POTASSIUM 4.1 mmol/l (3.5-5.1)
[2021-09-28 09:32] VITALS: BP 146/60
[2021-09-28 09:37] VITALS: BP 150/67
[2021-09-28 09:42] VITALS: BP 130/59
[2021-09-28] MEDS ORDERED: AMOX/K CLAV875 M1 PO (10:59)
[2021-09-28] MEDS ORDERED: AVAPRO300 MG PO (10:59)
[2021-09-28] MEDS ORDERED: KLONOPIN0.5 MG PO (11:05)
[2021-09-28 14:42] VITALS: BP 130/56
== END 2021-09-28 15:58 | disposition home health service (06) ==
LOC: ED 14:29 → ED-I 16:03 → ED 18:42 → MS2 18:43
PROVIDERS: Family Medicine; ADMIT Hospitalist; ATTEND Hospitalist
DX: I95.1 Orthostatic hypotension (principal); K57.32 Diverticulitis of large intestine without perforation or abscess without bleeding; E86.0 Dehydration; E83.42 Hypomagnesemia; I11.0 Hypertensive heart disease with heart failure; I50.9 Heart failure, unspecified; E11.9 Type 2 diabetes mellitus without complications; Z79.84 Long term (current) use of oral hypoglycemic drugs; Z86.16 Personal history of COVID-19; Z20.822 Contact with and (suspected) exposure to COVID-19
CPT/HCPCS: G0378; J3475; Q9967